=== PATIENT | male | born 1990 | race Two or more races ===

== ENCOUNTER 2017-08-17 23:11 | Emergency (ER) | payer OTHER ==
[~2017-08-17] VITALS: Ht 175.3 cm; Wt 75.0 kg
[2017-08-17 23:16] VITALS: BP 154/89
[2017-08-18] MEDS ORDERED: PERTUSS(ACELL),DIPH,TET VAC/PF 0.5 ML VIAL IM ONE (00:15)
== END 2017-08-18 00:45 | disposition home or self-care (01) ==
LOC: EMS 23:11
DX: S61.202A Unspecified open wound of right middle finger without damage to nail, initial encounter (principal); F17.210 Nicotine dependence, cigarettes, uncomplicated; W26.8XXA Contact with other sharp object(s), not elsewhere classified, initial encounter; Y93.89 Activity, other specified; Y92.810 Car as the place of occurrence of the external cause; Y99.8 Other external cause status
CPT/HCPCS: 90471; 90715; 99283